=== PATIENT | female | born 1970 | race American Indian/Alaskan Native ===

== ENCOUNTER 2017-03-27 08:17 | Inpatient (IN) | payer OTHER ==
[2017-03-27 09:11] LABS: Urine Drugs of Abuse Note Disclamer
[2017-03-27 09:15] LABS: Hematocrit 49.2 % (30.3-42.9); Hemoglobin 16.5 gm/dl (10.1-14.3); INR 0.93 (0.87-1.13); Mean Corpuscular HGB Conc 34 % (30-34); Mean Corpuscular Hemoglobin 29 pg (28-32); Mean Corpuscular Volume 86 fl (79-97); Platelet Count 330 K/mm3 (140-440); Red Cell Distribution Width 15.2 % (13.2-15.2); White Blood Count 19.8 K/mm3 (4.5-11.0)
[2017-03-27 09:17] LABS: Bilirubin,Urine Small (Negative)
[2017-03-27 09:18] LABS: Blood,Urine Negative (Negative); Ketones,Urine Negative (Negative); Leukocyte Esterase,Urine Negative (Negative); Nitrite,Urine Negative (Negative); Urobilinogen,Urine < 2.0 mg/dL (<2.0)
[2017-03-27 09:28] LABS: Albumin 4.8 g/dL (3.9-5); Albumin/Globulin Ratio 1.2 %; Alkaline Phosphatase 98 units/L (35-129); BUN/Creatinine Ratio 10; Blood Urea Nitrogen 25 mg/dL (7-17); Calcium 9.9 mg/dL (8.4-10.2); Carbon Dioxide 21 mmol/L (22-30); Chloride 87.7 mmol/L (98-107); Glucose 124 mg/dL (65-100); Lipase 45 units/L (13-60); Sodium 132 mmol/L (137-145); Total Protein 8.7 g/dL (6.3-8.2)
[2017-03-27 09:31] LABS: Bacteria,Urine 1+ /HPF (Negative); Mucus,Urine Few /HPF
--- NOTE | 2017-03-27 09:45 | XRay Report ---
CHEST ONE VIEW INDICATION: Possible sepsis. COMPARISON: None similar at this institution. FINDINGS: Portable, single, frontal chest radiograph demonstrates normal cardiomediastinal silhouette. Clear lungs. Unremarkable bones. CONCLUSION: No acute disease in the chest. Thank you for the opportunity to participate in this patient's care.
[2017-03-27 09:46] LABS: Alanine Aminotransferase 12 units/L (7-56); Anion Gap 26 mmol/L
--- NOTE | 2017-03-27 10:25 | Emergency Department Report ---
ED Chest Pain HPI - General Chief Complaint: Chest Pain Stated Complaint: N/V,ABD PAIN,CP Time Seen by Provider: 03/27/17 10:18 Source: patient, EMS Mode of arrival: Stretcher Limitations: No Limitations - History of Present Illness Initial Comments: Patient presents to the emergency department with epigastric and mid abdominal pain. She states she's had this for several hours. She admits she has a history of renal insufficiency. Apparently she has been abusing cocaine and other substances. She complains of nausea. She states that she is not having any apparent fever or chills. She is generally a poor historian. She denies any prior abdominal surgery. She denies any dysuria or vaginal discharge. MD Complaint: chest pain (pain is in the epigastric region and below the complaint of some chest pain earlier but not complaining of chest pain now) -: Gradual, hour(s) Onset: during rest Pain Location: epigastric Pain Radiation: none Severity: moderate Quality: aching Consistency: constant Improves With: nothing Worsens With: nothing Context: other (cocaine abuse) re: nausea, vomting Other Symptoms: denies: cough, fever, syncope Treatments Prior to Arrival: none Aspirin use within the Past 7 Days: (0) No - Related Data Allergies Allergy/AdvReac Type Severity Reaction Status Date / Time No Known Allergies Allergy Verified 03/27/17 08:24 Heart Score - HEART Score History: Slightly suspicious EKG: Normal Age: 45-65 Risk factors: 1-2 risk factors Troponin: < normal limit HEART Score: 2 ED Review of Systems ROS: Stated complaint: N/V,ABD PAIN,CP Other details as noted in HPI Constitutional: denies: chills, fever Eyes: denies: eye pain, eye discharge, vision change ENT: denies: ear pain, throat pain Respiratory: denies: cough, shortness of breath, wheezing Cardiovascular: chest pain. denies: palpitations Endocrine: no symptoms reported Gastrointestinal: abdominal pain, nausea, vomiting. denies: diarrhea Genitourinary: denies: urgency, dysuria, discharge Musculoskeletal: denies: back pain, joint swelling, arthralgia Skin: denies: rash, lesions Neurological: denies: headache, weakness, paresthesias Psychiatric: denies: anxiety, depression Hematological/Lymphatic: denies: easy bleeding, easy bruising ED Past Medical Hx - Past Medical History Previous Medical History?: Yes Hx Hypertension: Yes Hx Renal Disease: Yes (states positive history) Additional medical history: "increased bile production" - Surgical History Additional Surgical History: tubal ligation. biopsy - Social History Smoking Status: Current Every Day Smoker Substance Use Type: Alcohol, Marijuana ED Physical Exam - General General appearance: alert, anxious - Head Head exam: Present: atraumatic, normocephalic - Eye Eye exam: Present: normal appearance, PERRL, EOMI. Absent: scleral icterus - ENT ENT exam: Present: normal exam, mucous membranes moist - Neck Neck exam: Present: normal inspection. Absent: tenderness, meningismus - Respiratory Respiratory exam: Present: normal lung sounds bilaterally. Absent: respiratory distress - Cardiovascular Cardiovascular Exam: Present: normal rhythm, tachycardia. Absent: systolic murmur, diastolic murmur, rubs, gallop - GI/Abdominal GI/Abdominal exam: Present: soft, normal bowel sounds. Absent: distended, tenderness, guarding, rebound, rigid - Extremities Exam Extremities exam: Present: normal inspection - Back Exam Back exam: Present: normal inspection - Neurological Exam Neurological exam: Present: alert, oriented X3, CN II-XII intact. Absent: motor sensory deficit - Psychiatric Psychiatric exam: Present: anxious, flat affect - Skin Skin exam: Present: warm, dry, intact, normal color. Absent: rash ED Course Vital Signs 03/27/17 03/27/17 03/27/17 09:15 09:16 10:54 Temperature 98.1 F Pulse Rate 108 H Respiratory 22 22 Rate Blood Pressure Blood Pressure 186/112 [Left] O2 Sat by Pulse 100 98 98 Oximetry 03/27/17 03/27/17 03/27/17 11:00 11:01 11:46 Temperature Pulse Rate 102 H 102 H Respiratory Rate Blood Pressure 190/121 161/109 Blood Pressure 178/120 [Left] O2 Sat by Pulse 98 Oximetry 03/27/17 03/27/17 11:47 12:44 Temperature Pulse Rate 84 Respiratory 22 Rate Blood Pressure Blood Pressure 148/109 [Left] O2 Sat by Pulse 99 Oximetry - Reevaluation(s) Reevaluation #1: Discussed with Dr. Salinas and patient admitted to the hospitalist service. A CT of the abdomen showed no evidence of evidence of any acute process. 03/27/17 12:54 Reevaluation #2: Patient was given labetalol and pain medicine/Ativan. He was given IV fluids. She was given empiric antibiotics. She will now be admitted to telemetry. 03/27/17 12:54 Reevaluation #3: I informed the lab that the CPK has not been received. It is yet pending. 03/27/17 12:57 ARISTIDES score - Aristides Score Age > 65: (0) No Aspirin use within the Past 7 Days: (0) No 3 or more CAD Risk Factors: (0) No 2 or more Angina events in past 24 hrs: (0) No Known CAD with more than 50% Stenosis: (0) No Elevated Cardiac Markers: (0) No ST Deviation Greater than 0.5mm: (0) No ARISTIDES Score: 0 ED Medical Decision Making - Lab Data Result diagrams: 03/27/17 08:47 03/27/17 08:47 Laboratory Results - last 24 hr 03/27/17 03/27/17 03/27/17 08:47 08:47 08:47 WBC RBC Hgb Hct MCV MCH MCHC RDW Plt Count PT 12.9 INR 0.93 VBG pH Sodium 132 L Potassium 3.0 L Chloride 87.7 L Carbon Dioxide 21 L Anion Gap 26 BUN 25 H Creatinine 2.4 H Estimated GFR 26 BUN/Creatinine Ratio 10 Glucose 124 H Lactic Acid 1.30 Calcium 9.9 Total Bilirubin 0.90 AST 24 ALT 12 Alkaline Phosphatase 98 Troponin T < 0.010 Total Protein 8.7 H Albumin 4.8 Albumin/Globulin Ratio 1.2 Lipase 45 HCG, Qual Urine Color Urine Turbidity Urine pH Ur Specific [place] Urine Protein Urine Glucose (UA) Urine Ketones Urine Blood Urine Nitrite Urine Bilirubin Urine Ictotest Urine Urobilinogen Ur Leukocyte Esterase Urine WBC (Auto) Urine RBC (Auto) U Epithel Cells (Auto) Urine Bacteria (Auto) Ur Transition Epith Cell Urine Mucus Urine Opiates Screen Urine Methadone Screen Ur Barbiturates Screen Ur Phencyclidine Scrn Ur Amphetamines Screen U Benzodiazepines Scrn Urine Cocaine Screen U Marijuana (THC) Screen Drugs of Abuse Note 03/27/17 03/27/17 03/27/17 08:47 08:47 08:47 WBC 19.8 H RBC 5.70 H Hgb 16.5 H Hct 49.2 H MCV 86 MCH 29 MCHC 34 RDW 15.2 Plt Count 330 PT INR VBG pH 7.466 H Sodium Potassium Chloride Carbon Dioxide Anion Gap BUN Creatinine Estimated GFR BUN/Creatinine Ratio Glucose Lactic Acid Calcium Total Bilirubin AST ALT Alkaline Phosphatase Troponin T Total Protein Albumin Albumin/Globulin Ratio Lipase HCG, Qual Negative Urine Color Urine Turbidity Urine pH Ur Specific [place] Urine Protein Urine Glucose (UA) Urine Ketones Urine Blood Urine Nitrite Urine Bilirubin Urine Ictotest Urine Urobilinogen Ur Leukocyte Esterase Urine WBC (Auto) Urine RBC (Auto) U Epithel Cells (Auto) Urine Bacteria (Auto) Ur Transition Epith Cell Urine Mucus Urine Opiates Screen Urine Methadone Screen Ur Barbiturates Screen Ur Phencyclidine Scrn Ur Amphetamines Screen U Benzodiazepines Scrn Urine Cocaine Screen U Marijuana (THC) Screen Drugs of Abuse Note 03/27/17 03/27/17 09:08 09:08 WBC RBC Hgb Hct MCV MCH MCHC RDW Plt Count PT INR VBG pH Sodium Potassium Chloride Carbon Dioxide Anion Gap BUN Creatinine Estimated GFR BUN/Creatinine Ratio Glucose Lactic Acid Calcium Total Bilirubin AST ALT Alkaline Phosphatase Troponin T Total Protein Albumin Albumin/Globulin Ratio Lipase HCG, Qual Urine Color Yellow Urine Turbidity Hazy Urine pH 5.0 Ur Specific [place] 1.035 H Urine Protein 100 mg/dl Urine Glucose (UA) Negative Urine Ketones Negative Urine Blood Negative Urine Nitrite Negative Urine Bilirubin Small Urine Ictotest Negative Urine Urobilinogen < 2.0 Ur Leukocyte Esterase Negative Urine WBC (Auto) 15.0 H Urine RBC (Auto) 5.0 U Epithel Cells (Auto) 45.0 H Urine Bacteria (Auto) 1+ Ur Transition Epith Cell 2.0 Urine Mucus Few Urine Opiates Screen Presumptive negative Urine Methadone Screen Presumptive negative Ur Barbiturates Screen Presumptive negative Ur Phencyclidine Scrn Presumptive negative Ur Amphetamines Screen Presumptive negative U Benzodiazepines Scrn Presumptive negative Urine Cocaine Screen Presumptive positive U Marijuana (THC) Screen Presumptive positive Drugs of Abuse Note Disclamer Laboratory Results - last 24 hr 03/27/17 03/27/17 03/27/17 08:47 08:47 08:47 WBC RBC Hgb Hct MCV MCH MCHC RDW Plt Count PT 12.9 INR 0.93 VBG pH Sodium 132 L Potassium 3.0 L Chloride 87.7 L Carbon Dioxide 21 L Anion Gap 26 BUN 25 H Creatinine 2.4 H Estimated GFR 26 BUN/Creatinine Ratio 10 Glucose 124 H Lactic Acid 1.30 Calcium 9.9 Total Bilirubin 0.90 AST 24 ALT 12 Alkaline Phosphatase 98 Troponin T < 0.010 Total Protein 8.7 H Albumin 4.8 Albumin/Globulin Ratio 1.2 Lipase 45 HCG, Qual Urine Color Urine Turbidity Urine pH Ur Specific [place] Urine Protein Urine Glucose (UA) Urine Ketones Urine Blood Urine Nitrite Urine Bilirubin Urine Ictotest Urine Urobilinogen Ur Leukocyte Esterase Urine WBC (Auto) Urine RBC (Auto) U Epithel Cells (Auto) Urine Bacteria (Auto) Ur Transition Epith Cell Urine Mucus Urine Opiates Screen Urine Methadone Screen Ur Barbiturates Screen Ur Phencyclidine Scrn Ur Amphetamines Screen U Benzodiazepines Scrn Urine Cocaine Screen U Marijuana (THC) Screen Drugs of Abuse Note Plasma/Serum Alcohol 03/27/17 03/27/17 03/27/17 08:47 08:47 08:47 WBC 19.8 H RBC 5.70 H Hgb 16.5 H Hct 49.2 H MCV 86 MCH 29 MCHC 34 RDW 15.2 Plt Count 330 PT INR VBG pH 7.466 H Sodium Potassium Chloride Carbon Dioxide Anion Gap BUN Creatinine Estimated GFR BUN/Creatinine Ratio Glucose Lactic Acid Calcium Total Bilirubin AST ALT Alkaline Phosphatase Troponin T Total Protein Albumin Albumin/Globulin Ratio Lipase HCG, Qual Negative Urine Color Urine Turbidity Urine pH Ur Specific [place] Urine Protein Urine Glucose (UA) Urine Ketones Urine Blood Urine Nitrite Urine Bilirubin Urine Ictotest Urine Urobilinogen Ur Leukocyte Esterase Urine WBC (Auto) Urine RBC (Auto) U Epithel Cells (Auto) Urine Bacteria (Auto) Ur Transition Epith Cell Urine Mucus Urine Opiates Screen Urine Methadone Screen Ur Barbiturates Screen Ur Phencyclidine Scrn Ur Amphetamines Screen U Benzodiazepines Scrn Urine Cocaine Screen U Marijuana (THC) Screen Drugs of Abuse Note Plasma/Serum Alcohol 03/27/17 03/27/17 03/27/17 09:08 09:08 11:15 WBC RBC Hgb Hct MCV MCH MCHC RDW Plt Count PT INR VBG pH Sodium Potassium Chloride Carbon Dioxide Anion Gap BUN Creatinine Estimated GFR BUN/Creatinine Ratio Glucose Lactic Acid 1.00 Calcium Total Bilirubin AST ALT Alkaline Phosphatase Troponin T Total Protein Albumin Albumin/Globulin Ratio Lipase HCG, Qual Urine Color Yellow Urine Turbidity Hazy Urine pH 5.0 Ur Specific [place] 1.035 H Urine Protein 100 mg/dl Urine Glucose (UA) Negative Urine Ketones Negative Urine Blood Negative Urine Nitrite Negative Urine Bilirubin Small Urine Ictotest Negative Urine Urobilinogen < 2.0 Ur Leukocyte Esterase Negative Urine WBC (Auto) 15.0 H Urine RBC (Auto) 5.0 U Epithel Cells (Auto) 45.0 H Urine Bacteria (Auto) 1+ Ur Transition Epith Cell 2.0 Urine Mucus Few Urine Opiates Screen Presumptive negative Urine Methadone Screen Presumptive negative Ur Barbiturates Screen Presumptive negative Ur Phencyclidine Scrn Presumptive negative Ur Amphetamines Screen Presumptive negative U Benzodiazepines Scrn Presumptive negative Urine Cocaine Screen Presumptive positive U Marijuana (THC) Screen Presumptive positive Drugs of Abuse Note Disclamer Plasma/Serum Alcohol 03/27/17 03/27/17 11:15 11:15 WBC RBC Hgb Hct MCV MCH MCHC RDW Plt Count PT INR VBG pH Sodium Potassium Chloride Carbon Dioxide Anion Gap BUN Creatinine Estimated GFR BUN/Creatinine Ratio Glucose Lactic Acid Calcium Total Bilirubin AST ALT Alkaline Phosphatase Troponin T < 0.010 Total Protein Albumin Albumin/Globulin Ratio Lipase HCG, Qual Urine Color Urine Turbidity Urine pH Ur Specific [place] Urine Protein Urine Glucose (UA) Urine Ketones Urine Blood Urine Nitrite Urine Bilirubin Urine Ictotest Urine Urobilinogen Ur Leukocyte Esterase Urine WBC (Auto) Urine RBC (Auto) U Epithel Cells (Auto) Urine Bacteria (Auto) Ur Transition Epith Cell Urine Mucus Urine Opiates Screen Urine Methadone Screen Ur Barbiturates Screen Ur Phencyclidine Scrn Ur Amphetamines Screen U Benzodiazepines Scrn Urine Cocaine Screen U Marijuana (THC) Screen Drugs of Abuse Note Plasma/Serum Alcohol < 0.01 - EKG Data -: EKG Interpreted by Me EKG shows normal: sinus rhythm Rate: tachycardia - Radiology Data Radiology results: report reviewed interpreted by me: Inferolateral repolarization abnormality which may be secondary to LVH consider ischemia Critical Care Time: Yes Critical care time in (mins) excluding proc time.: 60 Critical care attestation.: If time is entered above; I have spent that time in minutes in the direct care of this critically ill patient, excluding procedure time. ED Disposition Clinical Impression: Accelerated hypertension, Cocaine abuse, Hyponatremia, Hypokalemia Chest pain Qualifiers: Chest pain type: unspecified Qualified Code(s): R07.9 - Chest pain, unspecified Abdominal pain Qualifiers: Abdominal location: epigastric Qualified Code(s): R10.13 - Epigastric pain Leukocytosis, unspecified Qualifiers: Leukocytosis type: unspecified Qualified Code(s): D72.829 - Elevated white blood cell count, unspecified Renal failure Qualifiers: Renal failure chronicity: unspecified chronicity Qualified Code(s): N19 - Unspecified kidney failure Disposition: 09 OP ADMIT IP TO THIS HOSP Is pt being admited?: Yes Does the pt Need Aspirin: Yes Condition: Stable Instructions: Hypertension (ED), Chest Pain (ED) Referrals: PRIMARY CARE, [Primary Care Provider] - 3-5 Days Time of Disposition: 12:59
[2017-03-27] MEDS ORDERED: NORMODYNE IV ONE (11:05)
[2017-03-27] MEDS ORDERED: DILAUDID IV ONE (11:06)
[2017-03-27] MEDS ORDERED: ATIVAN IV ONE (11:06)
[2017-03-27] MEDS ORDERED: NACL 0.9% 1000 ML 1,000 ML IV ONE (11:08)
[2017-03-27] MEDS ORDERED: ZOFRAN IV ONE (11:08)
[2017-03-27] MEDS ORDERED: ZOSYN/NS 4.5GM/100ML 4.5 GM/100 ML VIAL IV ONE (11:30)
[2017-03-27] MEDS ORDERED: LASIX IV ONE (11:56)
--- NOTE | 2017-03-27 12:17 | Cat Scan Report ---
CT ABDOMEN AND PELVIS WITHOUT CONTRAST INDICATION: Abdominal pain. COMPARISON: None similar. FINDINGS: Noncontrast abdomen and pelvis CT performed. LUNG BASES: Nonspecific distal esophageal wall prominence/thickening, not excluded for gastroesophageal reflux and/or hiatal hernia, amongst others. ABDOMEN: Please note that sensitivity to detect small visceral lesions is limited due to the absence of intravenous or oral contrast. Grossly unremarkable unenhanced liver, spleen, gallbladder, pancreas, adrenals, nonaneurysmal abdominal aorta with a few atherosclerotic calcifications, IVC and non-hydronephrotic kidneys. No radiopaque calculi. Left hepatic lobe tip extends into the left upper quadrant. No ascites. Few small, subcentimeter mesenteric lymph nodes. Nonopacified GI tract evaluation limited, though grossly nonobstructive. PELVIS: Cecum lying in the right hemipelvis with a normal appendix. Grossly unremarkable uterus, adnexa/ovaries and nonopacified urinary bladder and the rectosigmoid. No free fluid or significant adenopathy. Unremarkable bones. CONCLUSION: No acute significant CT abnormality on this unenhanced exam with few incidental findings, as above. Thank you for the opportunity to participate in this patient's care.
[2017-03-27] MEDS ORDERED: BABY ASPIRIN PO ONE (12:59)
[2017-03-27 13:08] LABS: Creatine Kinase MB 1.7 ng/mL (0.0-4.0)
[2017-03-27] MEDS: DILAUDID IV PRN (16:56)
[2017-03-27] MEDS: ZOFRAN IV PRN ×2 (17:21→23:00)
--- NOTE | 2017-03-27 23:42 | History and Physical Report ---
History of Present Illness Date of examination: 03/27/17 Date of admission: 03/27/17 13:00 Chief complaint: CC L side chest pain History of present illness: - History of Present Illness Initial Comments: Patient presents to the emergency department with epigastric and mid abdominal pain. She states she's had this for several hours. She admits she has a history of renal insufficiency. Apparently she has been abusing cocaine and other substances. She complains of nausea. She states that she is not having any apparent fever or chills. She is generally a poor historian. She denies any prior abdominal surgery. She denies any dysuria or vaginal discharge. MD Complaint: chest pain (pain is in the epigastric region and below the complaint of some chest pain earlier but not complaining of chest pain now) -: Gradual, hour(s) Onset: during rest Pain Location: epigastric Pain Radiation: none Severity: moderate Quality: aching Consistency: constant Improves With: nothing Worsens With: nothing Context: other (cocaine abuse) re: nausea, vomting Other Symptoms: denies: cough, fever, syncope Treatments Prior to Arrival: none Aspirin use within the Past 7 Days: (0) No ED Review of Systems ROS: Stated complaint: N/V,ABD PAIN,CP Other details as noted in HPI Constitutional: denies: chills, fever Eyes: denies: eye pain, eye discharge, vision change ENT: denies: ear pain, throat pain Respiratory: denies: cough, shortness of breath, wheezing Cardiovascular: chest pain. denies: palpitations Endocrine: no symptoms reported Gastrointestinal: abdominal pain, nausea, vomiting. denies: diarrhea Genitourinary: denies: urgency, dysuria, discharge Musculoskeletal: denies: back pain, joint swelling, arthralgia Skin: denies: rash, lesions Neurological: denies: headache, weakness, paresthesias Psychiatric: denies: anxiety, depression Hematological/Lymphatic: denies: easy bleeding, easy bruising - Past Medical History Previous Medical History?: Yes Hx Hypertension: Yes Hx Renal Disease: Yes (states positive history) Additional medical history: "increased bile production" - Surgical History Additional Surgical History: tubal ligation. biopsy - Social History Smoking Status: Current Every Day Smoker Substance Use Type: Alcohol, Marijuana Review of Systems ROS: Stated complaint: N/V,ABD PAIN,CP Other details as noted in HPI Constitutional: denies: chills, fever Eyes: denies: eye pain, eye discharge, vision change ENT: denies: ear pain, throat pain Respiratory: denies: cough, shortness of breath, wheezing Cardiovascular: chest pain. denies: palpitations Endocrine: no symptoms reported Gastrointestinal: abdominal pain, nausea, vomiting. denies: diarrhea Genitourinary: denies: urgency, dysuria, discharge Musculoskeletal: denies: back pain, joint swelling, arthralgia Skin: denies: rash, lesions Neurological: denies: headache, weakness, paresthesias Psychiatric: denies: anxiety, depression Hematological/Lymphatic: denies: easy bleeding, easy bruising Medications and Allergies Allergies Allergy/AdvReac Type Severity Reaction Status Date / Time No Known Allergies Allergy Verified 03/27/17 08:24 Home Medications Medication Instructions Recorded Confirmed Last Taken Type No Known Home Medications [No 03/27/17 03/27/17 Unknown History Reported Home Medications] Active Meds: Active Medications Hydromorphone HCl (Dilaudid) 1 mg IV Q3H PRN PRN Reason: Pain , Severe (7-10) Last Admin: 03/27/17 16:56 Dose: 1 mg Ondansetron HCl (Zofran) 4 mg IV Q4H PRN PRN Reason: Nausea And Vomiting Last Admin: 03/27/17 23:00 Dose: 4 mg Exam - Constitutional Vitals: Temp Pulse Resp BP Pulse Ox 97.7 F 66 18 147/87 98 03/27/17 19:41 03/27/17 19:41 03/27/17 21:26 03/27/17 19:41 03/27/17 21:26 General appearance: Present: no acute distress, well-nourished - EENT Eyes: Present: PERRL ENT: hearing intact, clear oral mucosa - Neck Neck: Present: supple, normal ROM - Respiratory Respiratory effort: normal Respiratory: bilateral: CTA - Cardiovascular Heart rate: 70 Rhythm: regular Heart Sounds: Present: S1 & S2. Absent: rub, click - Extremities Extremities: no ischemia, pulses intact, pulses symmetrical, No edema Peripheral Pulses: within normal limits - Abdominal General gastrointestinal: Present: soft, non-tender, non-distended, normal bowel sounds Female genitourinary: Present: normal - Rectal Rectal Exam: deferred - Integumentary Integumentary: Present: clear, warm, dry - Musculoskeletal Musculoskeletal: gait normal, strength equal bilaterally - Psychiatric Psychiatric: appropriate mood/affect, intact judgment & insight - Neurologic Neurologic: CNII-XII intact, moves all extremities - Allied Health Allied health notes reviewed: nursing, case management Results - Labs CBC & Chem 7: 03/27/17 08:47 03/27/17 08:47 Labs: Laboratory Last Values WBC 19.8 K/mm3 (4.5-11.0) H 03/27/17 08:47 RBC 5.70 M/mm3 (3.65-5.03) H 03/27/17 08:47 Hgb 16.5 gm/dl (10.1-14.3) H 03/27/17 08:47 Hct 49.2 % (30.3-42.9) H 03/27/17 08:47 MCV 86 fl (79-97) 03/27/17 08:47 MCH 29 pg (28-32) 03/27/17 08:47 MCHC 34 % (30-34) 03/27/17 08:47 RDW 15.2 % (13.2-15.2) 03/27/17 08:47 Plt Count 330 K/mm3 (140-440) 03/27/17 08:47 PT 12.9 Sec. (12.2-14.9) 03/27/17 08:47 INR 0.93 (0.87-1.13) 03/27/17 08:47 VBG pH 7.466 (7.320-7.420) H 03/27/17 08:47 Sodium 132 mmol/L (137-145) L 03/27/17 08:47 Potassium 3.0 mmol/L (3.6-5.0) L 03/27/17 08:47 Chloride 87.7 mmol/L (98-107) L 03/27/17 08:47 Carbon Dioxide 21 mmol/L (22-30) L 03/27/17 08:47 Anion Gap 26 mmol/L 03/27/17 08:47 BUN 25 mg/dL (7-17) H 03/27/17 08:47 Creatinine 2.4 mg/dL (0.7-1.2) H 03/27/17 08:47 Estimated GFR 26 ml/min 03/27/17 08:47 BUN/Creatinine Ratio 10 % 03/27/17 08:47 Glucose 124 mg/dL (65-100) H 03/27/17 08:47 Lactic Acid 1.00 mmol/L (0.7-2.0) 03/27/17 11:15 Calcium 9.9 mg/dL (8.4-10.2) 03/27/17 08:47 Magnesium 1.80 mg/dL (1.7-2.3) 03/27/17 12:33 Total Bilirubin 0.90 mg/dL (0.1-1.2) 03/27/17 08:47 AST 24 units/L (5-40) 03/27/17 08:47 ALT 12 units/L (7-56) 03/27/17 08:47 Alkaline Phosphatase 98 units/L (35-129) 03/27/17 08:47 Total Creatine Kinase 37 units/L (30-135) 03/27/17 12:33 CK-MB (CK-2) 1.7 ng/mL (0.0-4.0) 03/27/17 12:33 CK-MB (CK-2) Rel Index 4.5 (0-4) H 03/27/17 12:33 Troponin T < 0.010 ng/mL (0.00-0.029) 03/27/17 16:08 Total Protein 8.7 g/dL (6.3-8.2) H 03/27/17 08:47 Albumin 4.8 g/dL (3.9-5) 03/27/17 08:47 Albumin/Globulin Ratio 1.2 % 03/27/17 08:47 Lipase 45 units/L (13-60) 03/27/17 08:47 HCG, Qual Negative (Negative) 03/27/17 08:47 Urine Color Yellow (Yellow) 03/27/17 09:08 Urine Turbidity Hazy (Clear) 03/27/17 09:08 Urine pH 5.0 (5.0-7.0) 03/27/17 09:08 Ur Specific Bronson 1.035 (1.003-1.030) H 03/27/17 09:08 Urine Protein 100 mg/dl mg/dL (Negative) 03/27/17 09:08 Urine Glucose (UA) Negative mg/dL (Negative) 03/27/17 09:08 Urine Ketones Negative mg/dL (Negative) 03/27/17 09:08 Urine Blood Negative (Negative) 03/27/17 09:08 Urine Nitrite Negative (Negative) 03/27/17 09:08 Urine Bilirubin Small (Negative) 03/27/17 09:08 Urine Ictotest Negative (Negative) 03/27/17 09:08 Urine Urobilinogen < 2.0 mg/dL (<2.0) 03/27/17 09:08 Ur Leukocyte Esterase Negative (Negative) 03/27/17 09:08 Urine WBC (Auto) 15.0 /HPF (0.0-6.0) H 03/27/17 09:08 Urine RBC (Auto) 5.0 /HPF (0.0-6.0) 03/27/17 09:08 U Epithel Cells (Auto) 45.0 /HPF (0-13.0) H 03/27/17 09:08 Urine Bacteria (Auto) 1+ /HPF (Negative) 03/27/17 09:08 Ur Transition Epith Cell 2.0 /HPF 03/27/17 09:08 Urine Mucus Few /HPF 03/27/17 09:08 Urine Opiates Screen Presumptive negative 03/27/17 09:08 Urine Methadone Screen Presumptive negative 03/27/17 09:08 Ur Barbiturates Screen Presumptive negative 03/27/17 09:08 Ur Phencyclidine Scrn Presumptive negative 03/27/17 09:08 Ur Amphetamines Screen Presumptive negative 03/27/17 09:08 U Benzodiazepines Scrn Presumptive negative 03/27/17 09:08 Urine Cocaine Screen Presumptive positive 03/27/17 09:08 U Marijuana (THC) Screen Presumptive positive 03/27/17 09:08 Drugs of Abuse Note Disclamer 03/27/17 09:08 Plasma/Serum Alcohol < 0.01 gm% (0-0.07) 03/27/17 11:15 BMP 03/27/17 08:47 Potassium 3.0 L Cardiac Enzymes 03/27/17 03/27/17 03/27/17 Range/Units 11:15 12:33 16:08 Total Creatine Kinase 37 (30-135) units/L CK-MB (CK-2) 1.7 (0.0-4.0) ng/mL Troponin T < 0.010 < 0.010 (0.00-0.029) ng/mL 03/28/17 03/28/17 Range/Units 00:44 07:27 Total Creatine Kinase 32 26 L (30-135) units/L CK-MB (CK-2) 1.6 1.2 (0.0-4.0) ng/mL Troponin T < 0.010 < 0.010 (0.00-0.029) ng/mL Liver Function 03/27/17 Range/Units 08:47 AST 24 (5-40) units/L ALT 12 (7-56) units/L - Imaging and Cardiology EKG: report reviewed Chest x-ray: report reviewed (NAF) CT scan - abdomen: report reviewed (NAF) Assessment and Plan Advance Directives: Yes VTE prophylaxis?: Chemical Plan of care discussed with patient/family: Yes - Patient Problems (1) Accelerated hypertension Current Visit: Yes Status: Acute Plan to address problem: Initiated on Losartan and IV Hydralazine (2) Chest pain Current Visit: Yes Status: Acute Qualifiers: Chest pain type: unspecified Qualified Code(s): R07.9 - Chest pain, unspecified Plan to address problem: Chest pain w/u (3) Hypokalemia Current Visit: Yes Status: Acute Plan to address problem: Supplemented (4) Leukocytosis, unspecified Current Visit: Yes Status: Acute Qualifiers: Leukocytosis type: unspecified Qualified Code(s): D72.829 - Elevated white blood cell count, unspecified Plan to address problem: Sec to UTI/Stress induced Patient on Rocephin (5) Renal failure Current Visit: Yes Status: Acute Qualifiers: Renal failure chronicity: unspecified chronicity Qualified Code(s): N19 - Unspecified kidney failure Plan to address problem: Nephrology consult requested (6) DVT prophylaxis Current Visit: Yes Status: Acute Plan to address problem: On Lovenox
[2017-03-28] MEDS ORDERED: AMBIEN PO ONE (00:18)
[2017-03-28 01:31] LABS: Creatine Kinase MB 1.6 ng/mL (0.0-4.0)
[2017-03-28 01:33] LABS: Creatine Kinase 32 units/L (30-135)
[2017-03-28 08:24] LABS: Creatine Kinase MB 1.2 ng/mL (0.0-4.0)
[2017-03-28 08:27] LABS: Creatine Kinase 26 units/L (30-135)
[2017-03-28] MEDS ORDERED: LEXISCAN IV ONE ×2 (08:48→08:51)
[2017-03-28] MEDS: DILAUDID IV PRN (10:35)
[2017-03-28] MEDS: ZOFRAN IV PRN (10:35)
[2017-03-28 11:26] LABS: Anion Gap 15 mmol/L; BUN/Creatinine Ratio 27; Blood Urea Nitrogen 19 mg/dL (7-17); Calcium 8.6 mg/dL (8.4-10.2); Carbon Dioxide 26 mmol/L (22-30); Chloride 101.1 mmol/L (98-107); Glucose 94 mg/dL (65-100); Sodium 139 mmol/L (137-145)
[2017-03-28 11:27] LABS: Potassium 2.8 mmol/L (3.6-5.0)
--- NOTE | 2017-03-28 11:30 | Consultation ---
History of Present Illness - Reason for Consult Consult date: 03/28/17 acute renal failure - History of Present Illness Mrs. Park is a 47yo with hypertension who presented to the ED with a four day hx of abdominal pain (epigastric) and vomiting - nonbloody, nonbilious emesis. She reports decline in urine output following onset of symptoms. She denies epistaxis, hemoptysis, hematuria. She reports a history of NSAID use - Goody powder and Motrin. Past History Past Medical History: GERD, hypertension Past Surgical History: No surgical history Social history: other (marijuana/cocaine abuse) Family history: no significant family history Medications and Allergies Allergies Allergy/AdvReac Type Severity Reaction Status Date / Time No Known Allergies Allergy Verified 03/27/17 08:24 Home Medications Medication Instructions Recorded Confirmed Last Taken Type No Known Home Medications [No 03/27/17 03/27/17 Unknown History Reported Home Medications] Active Meds: Active Medications Hydromorphone HCl (Dilaudid) 1 mg IV Q3H PRN PRN Reason: Pain , Severe (7-10) Last Admin: 03/28/17 10:35 Dose: 1 mg Potassium Chloride (Kcl 10meq/100ml) 10 meq in 100 mls @ 100 mls/hr IV Q1H REYNOLD Stop: 03/28/17 13:59 Ondansetron HCl (Zofran) 4 mg IV Q4H PRN PRN Reason: Nausea And Vomiting Last Admin: 03/28/17 10:35 Dose: 4 mg Review of Systems All systems: negative Gastrointestinal: abdominal pain, nausea, vomiting Genitourinary Female: no dysuria, no hematuria Exam - Vital Signs Vital signs: Vital Signs Temp Pulse Resp BP Pulse Ox 98.1 F 108 H 22 186/112 100 03/27/17 09:15 03/27/17 09:15 03/27/17 09:15 03/27/17 09:15 03/27/17 09:15 - General Appearance General appearance: well-developed, well-nourished EENT: ATNC Respiratory: Clear to Ascultation Heart: regular, S1S2 Gastrointestinal: Present: normal. Absent: tenderness, distended Integumentary: no rash Neurologic: no focal deficit Musculoskeletal: Present: other (no edema) Psychiatric: cooperative Results - Lab Results 03/27/17 08:47 03/28/17 10:52 Most recent lab results Calcium 8.6 mg/dL (8.4-10.2) 03/28/17 10:52 Magnesium 1.80 mg/dL (1.7-2.3) 03/27/17 12:33 Assessment and Plan Impression: * Acute kidney injury likely secondary to volume depletion * Nausea/vomiting * Accelerated hypertension * Hypokalemia * Leukocytosis * Substance abuse - cocaine/marijuana Plan: * RONALD resolved - SCr now 0.8mg/dL; continue IVF for hydration * Resume Amlodipine 10mg daily (home medication) * Note hypokalemia and uncontrolled HTN - may benefit from Aldactone. However, given unlikelihood of follow up, will avoid this medication * Replete K - note ordered * Adjust antiHTN medications * Avoid potential neprotoxins * Repeat BMP in am * Will follow peripherally
[2017-03-28 11:46] LABS: Creatine Kinase MB 1.2 ng/mL (0.0-4.0)
[2017-03-28 11:47] LABS: Creatine Kinase 27 units/L (30-135)
[2017-03-28] MEDS ORDERED: KCL 10MEQ/100ML 10 MEQ/100 ML BAG IV SCH ×2 (13:00→14:00)
[2017-03-28] MEDS ORDERED: NACL 0.9% 1000 ML 1,000 ML IV SCH (13:00)
[2017-03-28] MEDS ORDERED: K-DUR PO ONE ×2 (13:01→15:00)
--- NOTE | 2017-03-28 13:17 | Discharge Summary ---
Providers - Providers Date of Admission: 03/27/17 13:00 Date of discharge: 03/28/17 Attending physician: STACY MICHELLE 03/28/17 09:45 Consult to Physician [CONS] Routine Consulting Provider: ROSALIND PLAZA Reason For Exam: CKD Place consult to:: Dr. Plaza Notified:: Nettie MARTÍNEZ Was contact made?: Yes If yes, spoke with:: Dr. Stevens Time called:: 10:47 Primary care physician: [facility] Hospitalization Condition: Stable Hospital course: Patient presents to the emergency department with epigastric and mid abdominal pain. She states she's had this for several hours. Discharge diagnosis: * Acute kidney injury likely secondary to volume depletion * Nausea/vomiting * Accelerated hypertension * Hypokalemia * Leukocytosis * Substance abuse - cocaine/marijuana Disposition: DC-01 TO HOME OR SELFCARE Time spent for discharge: 32 minutes Core Measure Documentation - Palliative Care Palliative Care/ Comfort Measures: Not Applicable - Core Measures Any of the following diagnoses?: none Exam - Constitutional Vitals: Temp Pulse Resp BP Pulse Ox 98.5 F 103 H 18 152/106 96 03/28/17 07:49 03/28/17 09:48 03/28/17 07:49 03/28/17 09:48 03/28/17 07:49 General appearance: Present: no acute distress, well-nourished - EENT Eyes: Present: PERRL ENT: hearing intact, clear oral mucosa - Neck Neck: Present: supple, normal ROM - Respiratory Respiratory effort: normal Respiratory: bilateral: CTA - Cardiovascular Heart Sounds: Present: S1 & S2. Absent: rub, click - Extremities Extremities: pulses symmetrical, No edema Peripheral Pulses: within normal limits - Abdominal General gastrointestinal: Present: soft, non-tender, non-distended, normal bowel sounds - Integumentary Integumentary: Present: clear, warm, dry - Musculoskeletal Musculoskeletal: gait normal, strength equal bilaterally - Psychiatric Psychiatric: appropriate mood/affect, intact judgment & insight - Neurologic Neurologic: CNII-XII intact, moves all extremities Plan Activity: advance as tolerated Weight Bearing Status: Weight Bear as Tolerated Diet: low fat, low salt Follow up with: PRIMARY CARE, [Primary Care Provider] - 3-5 Days Prescriptions: amLODIPine [Norvasc] 10 mg PO QDAY #30 tablet Carvedilol [Coreg] 6.25 mg PO BID #60 tablet Potassium Chloride [K-Dur] 20 meq PO QDAY #3 tablet
[2017-03-28 13:40] LABS: Hematocrit 40.2 % (30.3-42.9); Hemoglobin 13.7 gm/dl (10.1-14.3); Mean Corpuscular HGB Conc 34 % (30-34); Mean Corpuscular Hemoglobin 30 pg (28-32); Mean Corpuscular Volume 88 fl (79-97); Platelet Count 261 K/mm3 (140-440); Red Blood Count 4.57 M/mm3 (3.65-5.03); Red Cell Distribution Width 14.9 % (13.2-15.2); White Blood Count 11.9 K/mm3 (4.5-11.0)
[2017-03-28] MEDS ORDERED: COREG PO SCH (14:00)
[2017-03-28] MEDS ORDERED: NORVASC PO SCH (14:00)
[2017-03-28] MEDS: KCL 10MEQ/100ML 10 MEQ/100 ML BAG IV SCH ×3 (15:35→18:12)
[2017-03-28 20:11] VITALS: BP 136/86
--- NOTE | 2017-03-29 01:01 | Treadmill Report ---
REASON FOR STUDY: Chest pain. IMAGING PROTOCOL: The patient received 10 mCi of Technetium 99m Tetrofosmin for resting image and 28 mCi of Technetium 99m Tetrofosmin for stress imaging. The imaging for the whole procedure was completed 30-90 minutes following the initial injection of Technetium 99m tetrofosmin. The SPECT imaging in the 180 degree arc was performed in the right anterior oblique projection. Computerized reconstruction of the images was performed for analysis. IMAGING RESULTS: Normal cavity size from stress to rest. Normal distribution of radionuclide in the anterior, inferior, septal, and apical regions. Gated SPECT, EF of 62% with no wall motion abnormalities. The patient infused Lexiscan with no EKG changes. SUMMARY: 1. Negative Lexiscan EKG. 2. Normal rest and stress myocardial perfusion scan. No significant stress ischemia. No wall motion abnormality. Gated SPECT, EF 62%. JOB# [id number] KEANU/ADDY
[2017-03-29] MEDS ORDERED: NORVASC PO SCH (10:00)
== END 2017-03-28 21:11 | disposition home or self-care (01) | DRG 641 ==
LOC: ED 08:17 → 4A 13:00
PROVIDERS: ADMIT Internal Medicine; ATTEND Internal Medicine
DX: E86.9 Volume depletion, unspecified (principal); N17.9 Acute kidney failure, unspecified; F14.10 Cocaine abuse, uncomplicated; R10.9 Unspecified abdominal pain; R07.9 Chest pain, unspecified; I10 Essential (primary) hypertension; F17.200 Nicotine dependence, unspecified, uncomplicated; D72.829 Elevated white blood cell count, unspecified; E87.6 Hypokalemia; K21.9 Gastro-esophageal reflux disease without esophagitis; Z98.51 Tubal ligation status
CPT/HCPCS: 36415; 71010; 74176; 78452; 80048; 80053; 80307; 80320; 81001; 82140; 82550; 82553; 82805; 83690; 83735; 84132; 84484; 84703; 85027; 85610; 87040; 87086; 93005; 93010; 93017; 96365; 96375; 99291; 99406; A9502; G0480; J1170; J2060; J2405; J2543; J2785; J3480; J7030